=== PATIENT | female | born 1985 | race Asian ===

== ENCOUNTER 2018-07-15 04:10 | Inpatient (IN) | payer BC ==
[2018-07-15] MEDS ORDERED: OXYTOCIN 10 UNIT/ML 1 ML VIAL IM PRN (05:42)
[2018-07-15] MEDS ORDERED: LIDOCAINE 0.5% (PF) 5 MG/ML (50 ML SDV) SQ PRN (05:42)
[2018-07-15] MEDS ORDERED: TERBUTALINE 1 MG/ML VIAL SQ PRN (05:42)
[2018-07-15] MEDS ORDERED: METHYLERGONOVINE 0.2 MG/ML 1 ML AMP IM PRN (05:42)
[2018-07-15] MEDS ORDERED: CARBOPROST TROMETHAMINE 250 MCG/ML 1 ML AMP IM PRN (05:42)
[2018-07-15] MEDS ORDERED: OXYTOCIN 30 UNITS/500 ML NS 30 UNIT in SALINE 1 500ML.BAG IV SCH (05:45)
[2018-07-15 06:19] VITALS: BMI 25.1
[2018-07-15 06:21] LABS: Basophils % (A) 0 %; Eosinophils # (A) 0.3 k/uL (0-0.7); Eosinophils % (A) 2 %; HCT 39.7 % (34.0-46.0); HGB 13.1 gm/dL (11.4-16.0); Lymphocytes # (A) 2.3 k/uL (1.0-4.8); Lymphocytes % (A) 21 %; MCH 29.1 pg (25.0-35.0); MCHC 32.9 g/dL (31.0-37.0); MCV 88.5 fL (80.0-100.0); Mean Platelet Volume 6.6; Monocytes # (A) 0.3 k/uL (0-1.0); Monocytes % (A) 3 %; Neutrophils # (A) 7.9 k/uL (1.3-7.7); Neutrophils % (A) 73 %; Platelet Count 243 k/uL (150-450); RBC 4.48 m/uL (3.80-5.40); RDW 14.2 % (11.5-15.5); WBC 10.9 k/uL (3.8-10.6)
[2018-07-15] MEDS: LACTATED RINGERS 1,000 ML IV SCH ×3 (06:21→07:58)
--- NOTE | 2018-07-15 06:50 | P.HPOB ---
History of Present Illness H&P Date: 07/15/18 Chief Complaint: Contractions This patient is a pleasant 32-year-old 1 para 0 female estimated date of confinement 07/27/2018 estimated gestational age 38-2/7 weeks who presents to labor and delivery with complaint of contractions since 2:00 this morning. Patient was seen in the office last week was closed and thick and is now 3 cm dilated in active labor. Patient's care is been complicated by the known uterine fibroid however she is had normal growth ultrasounds and testing. Patient did elect to have maternity 21 testing which was normal and she's had normal anatomy ultrasounds. Review of Systems Gastrointestinal: Reports heartburn Genitourinary: Reports Menstruation: Reports amenorrhea Past Medical History Past Medical History: No Reported History Additional Past Medical History / Comment(s): renal stones History of Any Multi-Drug Resistant Organisms: None Reported Additional Past Surgical History / Comment(s): hemmorroidectomy Past Anesthesia/Blood Transfusion Reactions: No Reported Reaction Past Psychological History: No Psychological Hx Reported Smoking Status: Never smoker Past Alcohol Use History: None Reported Past Drug Use History: None Reported - Past Family History Mother Family Medical History: Diabetes Mellitus Father Family Medical History: Hypertension, Thyroid Disorder Medications and Allergies Home Medications Medication Instructions Recorded Confirmed Type Pnv No.95/Ferrous Fum/Folic AC 1 each PO DAILY 07/15/18 07/15/18 History [ Multivitamin Tablet] Allergies Allergy/AdvReac Type Severity Reaction Status Date / Time No Known Allergies Allergy Verified 07/15/18 04:18 Exam Vital Signs Temp Pulse Resp BP Pulse Ox 07/15/18 05:58 20 07/15/18 05:45 99.0 F 75 20 116/75 07/15/18 04:55 98.4 F 90 16 125/72 98 Intake and Output 07/14/18 07/14/18 07/15/18 14:59 22:59 06:59 Other: # Voids 1 Weight 64.365 kg - OBG Physical Exam Abdomen: bowel sounds normal, no diffuse tenderness, no bruit present, no guarding noted, no hepatomegaly, no splenomegaly, no mass Vulva: both: normal Vagina: normal moisture, no discharge Cervix: no lesion (3 cm 80% effaced and -1 station.), no discharge Uterus: normal size (Fundal height is 37 cm) Results blood work shows she is A negative, rubella immune, RPR nonreactive, HIV nonreactive, hepatitis B was negative, Glucola was normal, group B strep was negative, patient received RhoGAM on May 01, ultrasounds have been normal. Maternity 21 was 46 X,X. Result Diagrams: 07/15/18 06:15 Abnormal Lab Results - Last 24 Hours (Table) 07/15/18 Range/Units 06:15 WBC 10.9 H (3.8-10.6) k/uL Neutrophils # 7.9 H (1.3-7.7) k/uL Assessment and Plan Assessment: This is a pleasant 32-year-old 1 para 0 female 38-2/7 weeks gestation who is admitted to labor and delivery in active labor. Artificial rupture membranes does show thick meconium-stained fluid, heart tones are reactive /category 1. Plan at this time is to anticipate vaginal delivery. Alert anesthesia due to meconium fluid and pain control as requested. (1) 38 weeks gestation of Current Visit: Yes Status: Acute Code(s): Z3A.38 - 38 WEEKS GESTATION OF SNOMED Code(s): 62873441 (2) Normal labor Current Visit: Yes Status: Acute Code(s): O80 - ENCOUNTER FOR FULL-TERM UNCOMPLICATED DELIVERY; Z37.9 - OUTCOME OF DELIVERY, UNSPECIFIED SNOMED Code(s ): 37978451 (3) Rh negative status during Current Visit: Yes Status: Acute Code(s): O26.899 - OTH RELATED CONDITIONS, UNSPECIFIED TRIMESTER; Z67.91 - UNSPECIFIED BLOOD TYPE, RH NEGATIVE SNOMED Code(s): 070796822 (4) Thick meconium stained amniotic fluid Current Visit: Yes Status: Acute Code(s): P96.83 - MECONIUM STAINING SNOMED Code(s): 835938783
--- NOTE | 2018-07-15 06:52 | P.MSEPDOC ---
Presenting Problems - Arrival Data Date of Arrival on Unit: 07/15/18 Time of Arrival on Unit: 04:10 Mode of Transport: Portable - Complaint OB-Reason for Admission/Chief Complaint: Possible Onset of Labor, Vaginal Bleeding Comment: PT called hair or beauty salon assistant with C/O bleeding, told to come in Medical History - Information : 1 Para: 0 Term: 0 : 0 Abortions: Spontaneous or Elective: 0 Number of Living Children: 0 - Gestational Age Gestational Age by TIFFANIE (wks/days): 38 Weeks and 2 Days - History Comment: Hx fibroids Review of Systems - Review of Systems Constitutional: No problems Breast: No problems ENT: No problems Cardiovascular: No problems Respiratory: No problems Gastrointestinal: No problems Genitourinary: No problems Musculoskeletal: No problems Neurological: No problems Skin: No problems Vital Signs - Temperature Temperature: 99.0 F Temperature Source: Temporal Artery Scan - Pulse Right Supine Brachial Pulse Rate: 75 Pulse Assessment Method: Automatic Cuff - Respirations Respiratory Rate: 20 - Blood Pressure Right Arm Supine Blood Pressure: 116/75 Blood Pressure Mean: 88 Blood Pressure Source: Automatic Cuff Medical Screen Scoring (Pre) - Cervical Exam Dilation: 1-3 cm = 1 Effacement: More than 50% = 2 Membranes: Intact - Uterine Contractions Frequency: > or = 36 weeks =2 - Maternal Vital Signs Maternal Temperature: N/A Maternal Blood Pressure: N/A - Pain Assessment Pain Location and Character: Medial, Abdomen Pain Scale Used: Numeric (1 - 10) Pain Intensity: 6 Pain Management Goal: 4 Pain Description: *Acute Pain Radiation Location: none Pain Frequency: Intermittent Pain Duration: 3 Pain Duration Units: Hours Pain Behavior: Fidgeting, Frustrated, Moving Slowly, Photophobic Effects of Pain: labor Pain Aggravating Factors: Contractions - Assessment Baseline FHR: 125 Heart Rate - NICHD Category: Category I (Normal) = 0 NST: Reactive - Total Score Total Score (Pre): 5 - Level of Risk Level of Risk: Low (0-5) Physician Notification (Pre) - Physician Notified Physician Notified Date: 07/15/18 Physician Notified Time: 04:55 Physician/Practitioner Notifed:: Dr Adams Spoke With: Dr Adams New Order Received: Yes - Notification Comment Comment: Physician in house, ordered complete OB ultrasound Medical Screen Scoring (Post) - Cervical Exam Dilation: 1-3 cm = 1 Effacement: More than 50% = 2 Membranes: Intact - Uterine Contractions Frequency: > or = 36 weeks =2 - Pain Assessment Pain Scale Used: Numeric (1 - 10) - Assessment Heart Rate: 125 Heart Rate - NICHD Category: Category I (Normal) = 0 NST: Reactive - Total Score Total Score (Post): 5 - Post Treatment Level of Risk Post Treatment Level of Risk: Low (0-5) Physician Notification (Post) - Physician Notified Physician Notified Date: 07/15/18 Physician Notified Time: 05:45 Physician/Practitioner Notified:: Dr Adams Spoke With: Dr Adams New Order Received: Yes Disposition - Disposition OB Disposition: Admit, LDRP Suite Transferred to:: Suite 11 I agree with the RN Medical Screening Exam: Yes Risk & Benefit of care provided described in d/c instruction: Yes Diagnosis: ENCOUNTER FOR FULL-TERM UNCOMPLICATED DELIVERY
[2018-07-15] MEDS ORDERED: SODIUM CHLORIDE 0.9% 100 ML BAG ONE (07:11)
[2018-07-15] MEDS ORDERED: fentaNYL (PF) 50 MCG/ML 5 ML AMP ONE (07:11)
[2018-07-15] MEDS ORDERED: ROPIVACAINE 5MG/ML 20ML VIAL ONE (07:11)
[2018-07-15] MEDS ORDERED: BISACODYL 10 MG SUPP RECTAL PRN (11:04)
[2018-07-15] MEDS ORDERED: diphenhydrAMINE 50 MG/ML 1 ML VIAL IVP PRN (11:04)
[2018-07-15] MEDS ORDERED: Rhogam IMMUNE GLOBULIN 1,500 UNIT/1 ML IM ONE (11:04)
[2018-07-15] MEDS ORDERED: diphenhydrAMINE 25 MG CAP PO PRN (11:04)
[2018-07-15] MEDS ORDERED: HYDROCORTISONE 2.5% RECTAL CREAM 30 GM TUBE RECTAL PRN (11:04)
[2018-07-15] MEDS ORDERED: BENZOCAINE/MENTHOL SPRAY 1 GM/SPRAY AEROSOL TOPICAL PRN (11:04)
[2018-07-15] MEDS ORDERED: LANOLIN CREAM 5 GM TUBE TOPICAL PRN (11:04)
[2018-07-15] MEDS ORDERED: WITCH HAZEL 1 EACH MED..PAD TOPICAL PRN (11:04)
[2018-07-15] MEDS ORDERED: OXYTOCIN 20 UNITS/1000 ML NS 1,000 ML IV SCH (11:04)
[2018-07-15] MEDS ORDERED: ZOLPIDEM 5 MG TAB PO PRN (11:04)
[2018-07-15] MEDS ORDERED: SIMETHICONE 80 MG CHEWABLE PO PRN (11:04)
[2018-07-15] MEDS: IBUPROFEN 600 MG TAB PO PRN ×2 (11:17→18:43)
--- NOTE | 2018-07-15 11:46 | P.PROBDLV ---
Vaginal Delivery Note - . Vaginal Delivery Note: Normal spontaneous vaginal delivery viable female Apgars 9 and 9 delivery time is 1048 hrs. Please see dictated H&P for intimate details of this patient's admission. Brief summary this is a pleasant 32-year-old 1 para 0 female estimated gestational age 38-2/7 weeks who presents to labor and delivery with complaints of regular painful contractions found to be in labor. Patient is artificial rupture membranes for thick meconium-stained fluid at 3 cm dilated. heart tones are reactive. Patient does request an epidural for pain control and was placed at this time. Labor continues to progress and she gets to complete. She pushes for approximately 20-25 minutes and pushes the head to the perineum. Posterior perineum is supported and we have controlled delivery of infant's head over the intact perineum. Mouth and nares are bulb suction the baby has spontaneous respiration at this time. With gentle downward traction we then have delivery anterior posterior shoulder and rest this infant's body. This is a vigorous viable female infant Apgars are 9 and 9 delivery time was 1040 hrs. After delivery of the infant the infant is late on the mother's abdomen and after the cord is done pulsate is doubly clamped and then cut. The umbilical cords does appear send but otherwise grossly normal. The placenta spontaneously delivered intact. Cord blood is obtained for Rh status. Inspection of the perineum shows a second-degree laceration which is repaired with 3-0 Vicryl usual fashion excellent reapproximation is noted. Estimated blood loss is 200 mL. There are no complications. Infant and mother are stable delivery room.
[2018-07-15] MEDS: SENNOSIDES-DOCUSATE SODIUM 1 EACH TAB PO SCH ×2 (20:11→22:11)
[2018-07-15] MEDS: ACETAMINOPHEN TAB 325 MG TAB PO PRN (20:12)
[2018-07-15] MEDS: DOCUSATE 100 MG CAP PO SCH (21:03)
[2018-07-16] MEDS: IBUPROFEN 600 MG TAB PO PRN ×3 (00:16→23:21)
--- NOTE | 2018-07-16 06:23 | P.PNOBGVD ---
Subjective - Subjective Patient reports: Reports appetite normal, Reports voiding normally, Reports pain well controlled, Reports ambulating normally : doing well Objective - Latest Vital Signs Latest vital signs: Vital Signs Temp Pulse Resp BP Pulse Ox 07/15/18 23:49 98.6 F 88 16 92/51 99 07/15/18 20:00 98.9 F 103 H 16 101/63 100 07/15/18 16:00 98.4 F 89 16 97/64 07/15/18 13:15 97.9 F 96 15 99/55 07/15/18 12:45 89 15 101/56 07/15/18 12:15 89 15 105/58 07/15/18 12:00 92 16 109/63 07/15/18 11:45 109 H 15 112/58 07/15/18 11:30 97 15 112/52 07/15/18 11:15 97.5 F L 96 15 117/57 07/15/18 06:52 99.0 F 75 20 116/75 Intake and Output 07/15/18 07/15/18 07/16/18 14:59 22:59 06:59 Other: # Voids 1 - Exam Lungs: bilateral: normal Chest: Normal S1, Normal S2 Extremities: Present: normal Abdomen: Present: normal appearance, soft Uterus: Present: normal, firm - Labs Labs: Abnormal Lab Results - Last 24 Hours (Table) 07/15/18 Range/Units 06:15 WBC 10.9 H (3.8-10.6) k/uL Neutrophils # 7.9 H (1.3-7.7) k/uL Assessment and Plan Assessment: day #1. Patient is resting without complaints. Vital signs are stable and she is afebrile. Uterus is firm nontender she's having normal lochia. My impression this is a normal course. Plan is to continue routine care discharge home tomorrow. (1) 38 weeks gestation of Current Visit: Yes Status: Acute Code(s): Z3A.38 - 38 WEEKS GESTATION OF SNOMED Code(s): 17853183 (2) Normal labor Current Visit: Yes Status: Acute Code(s): O80 - ENCOUNTER FOR FULL-TERM UNCOMPLICATED DELIVERY; Z37.9 - OUTCOME OF DELIVERY, UNSPECIFIED SNOMED Code(s ): 35322089 (3) Rh negative status during Current Visit: Yes Status: Acute Code(s): O26.899 - OTH RELATED CONDITIONS, UNSPECIFIED TRIMESTER; Z67.91 - UNSPECIFIED BLOOD TYPE, RH NEGATIVE SNOMED Code(s): 910740603 (4) Thick meconium stained amniotic fluid Current Visit: Yes Status: Acute Code(s): P96.83 - MECONIUM STAINING SNOMED Code(s): 743040007
[2018-07-16] MEDS: SENNOSIDES-DOCUSATE SODIUM 1 EACH TAB PO SCH ×2 (08:41→20:12)
[2018-07-16] MEDS: ACETAMINOPHEN TAB 325 MG TAB PO PRN (13:02)
[2018-07-16] MEDS: DOCUSATE 100 MG CAP PO SCH ×2 (15:13→20:12)
[2018-07-17 00:20] VITALS: RESP 16
--- NOTE | 2018-07-17 06:17 | P.PNOBGVD ---
Subjective - Subjective Patient reports: Reports appetite normal, Reports voiding normally, Reports pain well controlled, Reports ambulating normally : doing well Objective - Latest Vital Signs Latest vital signs: Vital Signs Temp Pulse Resp BP Pulse Ox 07/17/18 00:00 98.3 F 88 16 105/58 07/16/18 16:00 98.7 F 92 18 98/52 98 07/16/18 08:00 99.0 F 93 18 106/65 97 - Exam Lungs: bilateral: normal Chest: Normal S1, Normal S2 Extremities: Present: normal Abdomen: Present: normal appearance, soft Uterus: Present: normal, firm Assessment and Plan Assessment: Post day #2. Patient is resting without complaints wishes to go home. Vital signs are stable and she is afebrile. Uterus is firm nontender she's having normal lochia. My impression this is a normal course. Plan is to continue routine care discharge home later today. (1) 38 weeks gestation of Current Visit: Yes Status: Acute Code(s): Z3A.38 - 38 WEEKS GESTATION OF SNOMED Code(s): 34030894 (2) Normal labor Current Visit: Yes Status: Acute Code(s): O80 - ENCOUNTER FOR FULL-TERM UNCOMPLICATED DELIVERY; Z37.9 - OUTCOME OF DELIVERY, UNSPECIFIED SNOMED Code(s ): 09938414 (3) Rh negative status during Current Visit: Yes Status: Acute Code(s): O26.899 - OTH RELATED CONDITIONS, UNSPECIFIED TRIMESTER; Z67.91 - UNSPECIFIED BLOOD TYPE, RH NEGATIVE SNOMED Code(s): 904038087 (4) Thick meconium stained amniotic fluid Current Visit: Yes Status: Acute Code(s): P96.83 - MECONIUM STAINING SNOMED Code(s): 811318514
--- NOTE | 2018-07-17 06:19 | P.DS ---
Providers Date of admission: 07/15/18 05:39 Expected date of discharge: 07/17/18 Attending physician: Ilir Mercado Primary care physician: Stated None - Discharge Diagnosis(es) (1) 38 weeks gestation of Current Visit: Yes Status: Acute (2) Normal labor Current Visit: Yes Status: Acute (3) Rh negative status during Current Visit: Yes Status: Acute (4) Thick meconium stained amniotic fluid Current Visit: Yes Status: Acute Hospital Course: Please see dictated H&P for intimate details of this patient's admission. Brief summary this is a pleasant 32-year-old 1 para 0 female 38-2/7 weeks gestation who is admitted to labor and delivery in active labor. Patient was on to have a vaginal delivery viable female . Please see dictated delivery note. day #2 patient's felt to be stable for discharge home follow up with me in 6 weeks. Procedures: Normal spontaneous vaginal delivery Patient Condition at Discharge: Good Plan - Discharge Summary New Discharge Prescriptions: New Docusate [Colace] 100 mg PO BID #60 cap Ibuprofen [Motrin] 600 mg PO Q6HR PRN #40 tab PRN Reason: Mild Pain Or Fever >= 100.5 No Action Pnv No.95/Ferrous Fum/Folic AC [ Multivitamin Tablet] 1 each PO DAILY Discharge Medication List Pnv No.95/Ferrous Fum/Folic AC [ Multivitamin Tablet] 1 each PO DAILY [History] Docusate [Colace] 100 mg PO BID #60 cap 07/16/18 [Rx] Ibuprofen [Motrin] 600 mg PO Q6HR PRN #40 tab 07/16/18 [Rx] Follow up Appointment(s)/Referral(s): Ilir Mercado MD [STAFF PHYSICIAN] - 08/26/18 10:45 am Patient Instructions/Handouts: Vaginal Delivery (DC) Activity/Diet/Wound Care/Special Instructions: No intercourse or anything per vagina for 6 weeks. Please call if any fever, chills, excessive vaginal bleeding, and/or abdominal pain. Discharge Disposition: HOME SELF-CARE
[2018-07-17] MEDS: SENNOSIDES-DOCUSATE SODIUM 1 EACH TAB PO SCH (07:29)
[2018-07-17] MEDS: DOCUSATE 100 MG CAP PO SCH (07:30)
[2018-07-17] MEDS: IBUPROFEN 600 MG TAB PO PRN (13:16)
[2018-07-17] MEDS: ACETAMINOPHEN TAB 325 MG TAB PO PRN (14:32)
[2018-07-17 16:23] VITALS: BP 100/66; PULSE 96; TEMP 98.2
== END 2018-07-17 17:30 | disposition home or self-care (01) | DRG 807 ==
LOC: FBPOP 04:10 → 4FBP 05:39
PROVIDERS: ADMIT Obstetrics & Gynecology; ATTEND Obstetrics & Gynecology
PROC: 10E0XZZ Delivery of Products of Conception, External Approach (ICD-10-PCS; principal; 2018-07-15)
PROC: 0KQM0ZZ Repair Perineum Muscle, Open Approach (ICD-10-PCS; 2018-07-15)
PROC: 00HU33Z Insertion of Infusion Device into Spinal Canal, Percutaneous Approach (ICD-10-PCS; 2018-07-15)
PROC: 3E0R3BZ Introduction of Anesthetic Agent into Spinal Canal, Percutaneous Approach (ICD-10-PCS; 2018-07-15)
PROC: 3E0234Z Introduction of Serum, Toxoid and Vaccine into Muscle, Percutaneous Approach (ICD-10-PCS; 2018-07-15)
DX: O70.1 Second degree perineal laceration during delivery (principal); Z37.0 Single live birth; O34.13 Maternal care for benign tumor of corpus uteri, third trimester; D25.9 Leiomyoma of uterus, unspecified; O77.0 Labor and delivery complicated by meconium in amniotic fluid; O26.893 Other specified pregnancy related conditions, third trimester; Z67.91 Unspecified blood type, Rh negative; Z3A.38 38 weeks gestation of pregnancy; Z79.899 Other long term (current) drug therapy; Z87.442 Personal history of urinary calculi; Z83.3 Family history of diabetes mellitus; Z82.49 Family history of ischemic heart disease and other diseases of the circulatory system; Z83.49 Family history of other endocrine, nutritional and metabolic diseases
CPT/HCPCS: 59025; 84112; 85025; 85461; 86850; 86900; 86901; 88307; 99215

== ENCOUNTER 2020-03-05 16:51 | Inpatient (IN) | payer BC ==
[2020-03-05] MEDS: LACTATED RINGERS 1,000 ML IV SCH ×2 (17:40→18:53)
[2020-03-05] MEDS ORDERED: TERBUTALINE 1 MG/ML VIAL SQ PRN (17:45)
[2020-03-05] MEDS ORDERED: METHYLERGONOVINE 0.2 MG/ML 1 ML AMP IM PRN (17:45)
[2020-03-05] MEDS ORDERED: LACTATED RINGERS 1,000 ML IV SCH (17:45)
[2020-03-05] MEDS ORDERED: CARBOPROST TROMETHAMINE 250 MCG/ML 1 ML AMP IM PRN (17:45)
[2020-03-05] MEDS ORDERED: OXYTOCIN 10 UNIT/ML 1 ML VIAL IM PRN (17:45)
[2020-03-05] MEDS ORDERED: LIDOCAINE 0.5% (PF) 5 MG/ML (50 ML SDV) SQ PRN (17:45)
[2020-03-05] MEDS ORDERED: fentaNYL (PF) 50 MCG/ML 5 ML AMP ONE (18:13)
[2020-03-05] MEDS ORDERED: SODIUM CHLORIDE 0.9% 100 ML BAG ONE (18:13)
[2020-03-05] MEDS ORDERED: ROPIVACAINE 5MG/ML 20ML VIAL ONE (18:13)
[2020-03-05] MEDS ORDERED: fentaNYL (PF) 50 MCG/ML 2 ML AMP ONE (18:52)
[2020-03-05] MEDS ORDERED: KETOROLAC 15 MG/ML 1 ML VIAL ONE (18:52)
[2020-03-05] MEDS ORDERED: MIDAZOLAM 2 MG/2 ML VIAL ONE (18:52)
[2020-03-05] MEDS ORDERED: DEXAMETHASONE SOD PHOSPHATE 10 MG/ML 1 ML VIAL ONE (18:52)
[2020-03-05] MEDS ORDERED: MORPHINE SULFATE (PF) 0.3 MG/0.3 ML SYR ONE (18:52)
[2020-03-05] MEDS ORDERED: OXYTOCIN 10 UNIT/ML 1 ML VIAL ONE (18:52)
[2020-03-05] MEDS ORDERED: ONDANSETRON 4 MG/2 ML VIAL ONE (18:52)
[2020-03-05 18:53] LABS: Basophils % (A) 0 %; Eosinophils # (A) 0.2 k/uL (0-0.7); Eosinophils % (A) 2 %; HCT 35.8 % (34.0-46.0); HGB 12.1 gm/dL (11.4-16.0); Lymphocytes # (A) 1.6 k/uL (1.0-4.8); Lymphocytes % (A) 20 %; MCH 28.4 pg (25.0-35.0); MCHC 33.7 g/dL (31.0-37.0); MCV 84.2 fL (80.0-100.0); Mean Platelet Volume 7.6; Monocytes # (A) 0.3 k/uL (0-1.0); Monocytes % (A) 4 %; Neutrophils # (A) 5.8 k/uL (1.3-7.7); Neutrophils % (A) 71 %; Platelet Count 241 k/uL (150-450); RBC 4.26 m/uL (3.80-5.40); RDW 13.8 % (11.5-15.5); WBC 8.1 k/uL (3.8-10.6)
[2020-03-05] MEDS ORDERED: CITRIC ACID-SODIUM CITRATE 15 ML CUP PO ONE (19:13)
[2020-03-05] MEDS ORDERED: METOCLOPRAMIDE 5 MG/ML 2 ML VIAL IVP PRN (20:05)
[2020-03-05] MEDS ORDERED: ONDANSETRON 4 MG/2 ML VIAL IVP PRN (20:05)
[2020-03-05] MEDS ORDERED: Rhogam IMMUNE GLOBULIN 1,500 UNIT/1 ML IM ONE (20:05)
[2020-03-05] MEDS ORDERED: diphenhydrAMINE 25 MG CAP PO PRN (20:05)
[2020-03-05] MEDS ORDERED: HYDROmorphone PCA 10 MG/50 ML BAG IV PRN (20:05)
[2020-03-05] MEDS ORDERED: LANOLIN CREAM 5 GM TUBE TOPICAL PRN (20:05)
[2020-03-05] MEDS ORDERED: NALOXONE 0.4 MG/ML 1 ML VIAL IV PRN (20:05)
[2020-03-05] MEDS ORDERED: ZOLPIDEM 5 MG TAB PO PRN (20:05)
[2020-03-05] MEDS ORDERED: OXYTOCIN 20 UNITS/1000 ML NS 1,000 ML IV SCH (20:15)
--- NOTE | 2020-03-05 20:28 | P.HPOB ---
History of Present Illness H&P Date: 03/05/20 Chief Complaint: Contractions This patient is a pleasant 34-year-old 2 para 1 female estimated date of confinement 03/16/2020 estimated gestational age 38-3/7 weeks gestation who presented to labor and delivery this evening with complaints of contractions. Patient was 4 cm in the office and now is approximately 5-6 cm dilated in early active labor. care has been uncomplicated. Review of Systems Genitourinary: Reports Menstruation: Reports amenorrhea Past Medical History Additional Past Medical History / Comment(s): Patient has a history of kidney stones. History of Any Multi-Drug Resistant Organisms: None Reported Additional Past Surgical History / Comment(s): hemmorroidectomy Past Anesthesia/Blood Transfusion Reactions: No Reported Reaction Past Psychological History: No Psychological Hx Reported Smoking Status: Never smoker Past Alcohol Use History: None Reported Past Drug Use History: None Reported - Past Family History Mother Family Medical History: Diabetes Mellitus Father Family Medical History: Hypertension, Thyroid Disorder Medications and Allergies Allergies Allergy/AdvReac Type Severity Reaction Status Date / Time No Known Allergies Allergy Verified 07/15/18 04:18 Exam Intake and Output 03/05/20 03/05/20 03/05/20 06:59 14:59 22:59 Intake Total 1000 Balance 1000 Intake: IV 1000 Invasive Line 1 1000 Other: Weight 66.224 kg - OBG Physical Exam Abdomen: bowel sounds normal, no diffuse tenderness, no bruit present, no guarding noted, no hepatomegaly, no splenomegaly, no mass Vulva: both: normal Vagina: normal moisture, no discharge Cervix: no lesion (On admissions patient's cervix is 5-6 cm dilated 90% effaced 0-1 station.), no discharge Uterus: enlarged (Fundal height is consistent with gestational age) Results blood work shows she is A-, rubella immune, RPR is nonreactive, hepatitis B was negative, patient received RhoGAM on December 17, Glucola was normal, ultrasounds have shown normal growth, group B strep was negative. Result Diagrams: 03/05/20 17:20 Assessment and Plan Assessment: This is a pleasant 34-year-old 2 para 1 female 38-3/7 weeks gestation admitted in active labor. Plan is anticipate vaginal delivery. (1) 38 weeks gestation of Current Visit: No Status: Acute Code(s): Z3A.38 - 38 WEEKS GESTATION OF SNOMED Code(s): 72721649 (2) Normal labor Current Visit: No Status: Acute Code(s): O80 - ENCOUNTER FOR FULL-TERM UNCOMPLICATED DELIVERY; Z37.9 - OUTCOME OF DELIVERY, UNSPECIFIED SNOMED Code(s): 52548984 (3) Rh negative status during Current Visit: No Status: Acute Code(s): O26.899 - OTH RELATED CONDITIONS, UNSPECIFIED TRIMESTER; Z67.91 - UNSPECIFIED BLOOD TYPE, RH NEGATIVE SNOMED Code(s): 470918740
--- NOTE | 2020-03-05 20:47 | P.OP ---
Date of Procedure: 03/05/20 Preoperative Diagnosis: #1: 38-3/7 week . #2: Active labor. #3: Nonreassuring heart tones remote from delivery Postoperative Diagnosis: #1: Same. #2: Straight occiput posterior presentation Procedure(s) Performed: Emergent primary low transverse section Anesthesia: epidural Surgeon: Ilir Mercado Teacher Learning Disabled #1: Teri Conley Estimated Blood Loss (ml): 800 Pathology: other (Placenta) Condition: stable Disposition: floor Indications for Procedure: Please see dictated H&P for intimate details of this patient's admission. Brief summary this is a pleasant 34-year-old 2 para 1 female estimated gestational age 38-3/7 weeks who presents to labor and delivery complaints of contractions found to be in early active labor. Patient is artificial rupture membranes for clear fluid at 6 cm dilated. At this time patient does request an epidural for pain control. Patient does get relief from her epidural. Sometime thereafter patient develops episode of bradycardia (55-70) this does resolve after many minutes with position changes and remove her to the operating room.. While in the operating room heart tones are reassuring however she's been develops another episode of bradycardia that lasted for about 1 minute. At this time I recommend she proceed with immediate section for delivery. Patient understands this surgery and risks and risks of infection, bleeding, possible injury bowel, bladder, vessels, and/or other organs. All the patient's questions are answered and written consent is obtained. Operative Findings: This was a viable male Apgars 9 and 9 delivery time is 1924 hrs. Infant was straight occiput posterior presentation. There were no other obvious sources of the baby's bradycardia. Infant grossly appeared normal Description of Procedure: This patient has a Castaneda catheter placed to straight drain. Her epidural is of sufficient level for surgery therefore she has an immediate abdominal prep and drape. Scalpels then taken and a Pfannenstiel skin incision is made. A second scalpel is then taken down to the fascia. Fascia is then extended bilaterally using the Boone scissors. Fascia is dissected off the rectus muscles sharply. Rectus muscles are the peritoneum identified and entered sharply. Peritoneal incision extended superior and inferior without difficulty. Bladder blade is then placed. Bladder peritoneum was taken off the lower uterine segment. Scalpels taken low transverse uterine incision is made. Using a hemostat I into the uterine cavity bluntly. There is loss of small amount of clear fluid. Infant is found to be straight occiput posterior presentation. The head is then gently guided through the incision with fundal pressure delivered. Mouth and nares are bulb suctioned. There is no evidence of a nuchal cord. With more fundal pressure we gently have delivery the rest of this 's body. This is a vigorous viable male Apgars are 9 and 9 delivery time is 1924 hrs. has spontaneous respiration and vigorous cry. The umbilical cord is doubly clamped and cut. Infant is handed off to the nurses in attendance. Cord blood is obtained for Rh status. Placenta is then manually extracted intact. Uterus is externalized and uterine incision demarcated with Jane clamps. Uterine incision is then closed using 2 layers of 0 Vicryl running locked fashion. Excellent hemostasis is noted. Bladder peritoneum was reapproximated using a 3-0 Vicryl. Excess fluid is removed from the abdomen and pelvis. Uterus placed back in the abdomen. The parietal peritoneum was then closed using 0 Vicryl running fashion. Rectus muscles reapproximated Vicryl interrupted fashion. Fascial incision is then closed using 0 PDS in a running fashion. Fascial incision is intact and hemostatic. Subcutaneous tissues and closed using a 3-0 Vicryl. Skin is and closed using sanjay. All counts are correct 3. There are no complications. and mother are stable and taken to the birthing suite.
[2020-03-05] MEDS: diphenhydrAMINE 50 MG/ML 1 ML VIAL IVP PRN (21:30)
[2020-03-06] MEDS: LACTATED RINGERS 1,000 ML IV SCH ×2 (03:30→20:41)
[2020-03-06] MEDS: KETOROLAC 15 MG/ML 1 ML VIAL IVP PRN ×2 (04:12→09:55)
[2020-03-06] MEDS: SIMETHICONE 80 MG CHEWABLE PO PRN (04:52)
[2020-03-06] MEDS: diphenhydrAMINE 50 MG/ML 1 ML VIAL IVP PRN ×2 (05:00→10:00)
[2020-03-06 05:30] LABS: Basophils % (A) 0 %; Eosinophils % (A) 0 %; HCT 33.6 % (34.0-46.0); HGB 10.9 gm/dL (11.4-16.0); Lymphocytes % (A) 13 %; MCH 26.8 pg (25.0-35.0); MCHC 32.4 g/dL (31.0-37.0); MCV 82.9 fL (80.0-100.0); Mean Platelet Volume 7.6; Monocytes # (A) 0.5 k/uL (0-1.0); Monocytes % (A) 3 %; Neutrophils # (A) 13.1 k/uL (1.3-7.7); Neutrophils % (A) 83 %; Platelet Count 263 k/uL (150-450); RBC 4.05 m/uL (3.80-5.40); RDW 13.9 % (11.5-15.5); WBC 15.8 k/uL (3.8-10.6)
--- NOTE | 2020-03-06 07:33 | P.PNOBGPC ---
Subjective - Subjective Patient reports: Reports appetite normal, Reports voiding normally, Reports pain well controlled, Reports ambulating normally : doing well Objective - Vital Signs Latest vital signs: Vital Signs Temp Pulse Resp BP Pulse Ox 03/06/20 04:00 97.4 F L 93 16 107/54 99 03/06/20 00:00 97.2 F L 78 16 102/55 100 03/05/20 21:55 86 16 101/61 03/05/20 21:25 93 16 100/65 100 03/05/20 20:55 84 16 102/65 99 03/05/20 20:40 85 16 94/57 100 03/05/20 20:25 88 16 102/60 100 03/05/20 20:10 96 16 101/56 100 03/05/20 19:55 97.6 F 96 17 100 03/05/20 18:11 98.7 F 97 18 110/64 Intake and Output 03/05/20 03/06/20 03/06/20 22:59 06:59 14:59 Intake Total 1000 Output Total 1400 900 Balance -400 -900 Intake: IV 1000 Invasive Line 1 1000 Output: Urine 600 900 Estimated Blood Loss 800 Other: Voiding Method Indwelling Catheter Weight 66.224 kg - Exam Lungs: bilateral: normal Chest: Normal S1, Normal S2 Extremities: Present: normal Abdomen: Present: normal appearance, soft. Absent: distention, tenderness Incision: Present: normal, dry, intact Uterus: Present: normal, firm - Labs Labs: Abnormal Lab Results - Last 24 Hours (Table) 03/06/20 Range/Units 04:43 WBC 15.8 H (3.8-10.6) k/uL Hgb 10.9 L (11.4-16.0) gm/dL Hct 33.6 L (34.0-46.0) % Neutrophils # 13.1 H (1.3-7.7) k/uL Assessment and Plan Assessment: Postoperative day #1. Patient is resting without new complaints. Vital signs are stable and she is afebrile. Uterus is firm nontender and her incision is intact and dry. Patient's having normal lochia. CBC is pending. Plan today is to continue postoperative care. We'll check a CBC, allow patient to shower, advance her diet, and encourage ambulation. (1) 38 weeks gestation of Current Visit: No Status: Acute Code(s): Z3A.38 - 38 WEEKS GESTATION OF SNOMED Code(s): 88590580 (2) Normal labor Current Visit: No Status: Acute Code(s): O80 - ENCOUNTER FOR FULL-TERM UNCOMPLICATED DELIVERY; Z37.9 - OUTCOME OF DELIVERY, UNSPECIFIED SNOMED Code(s): 04031025 (3) Rh negative status during Current Visit: No Status: Acute Code(s): O26.899 - OTH RELATED CONDITIONS, UNSPECIFIED TRIMESTER; Z67.91 - UNSPECIFIED BLOOD TYPE, RH NEGATIVE SNOMED Code(s): 374230246
[2020-03-06] MEDS: SENNOSIDES-DOCUSATE SODIUM 1 EACH TAB PO SCH ×2 (07:40→20:39)
[2020-03-06] MEDS: HYDROcodone/APAP 5-325MG 1 EACH TAB PO PRN ×2 (07:41→18:31)
[2020-03-06] MEDS: ACETAMINOPHEN TAB 325 MG TAB PO PRN (12:47)
[2020-03-06] MEDS: IBUPROFEN 600 MG TAB PO PRN ×2 (15:55→22:50)
[2020-03-07] MEDS: IBUPROFEN 600 MG TAB PO PRN ×3 (04:48→18:21)
[2020-03-07] MEDS: SIMETHICONE 80 MG CHEWABLE PO PRN ×3 (04:52→22:45)
--- NOTE | 2020-03-07 06:39 | P.PNOBGPC ---
Subjective - Subjective Patient reports: Reports appetite normal, Reports voiding normally, Reports pain well controlled, Reports ambulating normally : doing well Objective - Vital Signs Latest vital signs: Vital Signs Temp Pulse Resp BP Pulse Ox 03/06/20 23:40 98.1 F 101 H 16 99/66 98 03/06/20 20:00 98.5 F 85 16 101/67 98 03/06/20 18:00 95/57 03/06/20 16:00 98.4 F 85 18 75/49 99 03/06/20 12:00 98.6 F 80 18 87/58 98 Intake and Output 03/06/20 03/06/20 03/07/20 14:59 22:59 06:59 Output Total 1250 Balance -1250 Output: Urine 1250 Other: # Voids 1 2 # Bowel Movements 0 - Exam Lungs: bilateral: normal Chest: Normal S1, Normal S2 Extremities: Present: normal Abdomen: Present: normal appearance, soft. Absent: distention, tenderness Incision: Present: normal, dry, intact Uterus: Present: normal, firm Assessment and Plan Assessment: Postoperative day #2. Vital signs are stable she's afebrile. CBC yesterday was within normal limits for state. Uterus is firm nontender and her incision is intact and dry. Patient is tolerating regular diet and urinating without difficulty. Plan today is to continue postoperative care discharge home tomorrow (1) 38 weeks gestation of Current Visit: No Status: Acute Code(s): Z3A.38 - 38 WEEKS GESTATION OF SNOMED Code(s): 35833746 (2) Normal labor Current Visit: No Status: Acute Code(s): O80 - ENCOUNTER FOR FULL-TERM UNCOMPLICATED DELIVERY; Z37.9 - OUTCOME OF DELIVERY, UNSPECIFIED SNOMED Code(s): 92582305 (3) Rh negative status during Current Visit: No Status: Acute Code(s): O26.899 - OTH RELATED CONDITIONS, UNSPECIFIED TRIMESTER; Z67.91 - UNSPECIFIED BLOOD TYPE, RH NEGATIVE SNOMED Code(s): 485232598
[2020-03-07] MEDS: SENNOSIDES-DOCUSATE SODIUM 1 EACH TAB PO SCH ×2 (07:44→22:45)
[2020-03-07] MEDS: ACETAMINOPHEN TAB 325 MG TAB PO PRN ×2 (07:44→20:57)
[2020-03-08] MEDS: HYDROcodone/APAP 5-325MG 1 EACH TAB PO PRN (04:46)
--- NOTE | 2020-03-08 06:25 | P.PNOBGPC ---
Subjective - Subjective Patient reports: Reports appetite normal, Reports voiding normally, Reports pain well controlled, Reports ambulating normally : doing well Objective - Vital Signs Latest vital signs: Vital Signs Temp Pulse Resp BP Pulse Ox 03/07/20 23:46 98.0 F 88 18 95/57 03/07/20 23:42 88 15 03/07/20 16:00 98.1 F 88 15 95/61 03/07/20 08:00 98.5 F 85 15 101/68 97 Intake and Output 03/07/20 03/07/20 03/08/20 14:59 22:59 06:59 Intake Total 1000 Balance 1000 Intake: Oral 1000 Other: Voiding Method Indwelling Catheter # Voids 2 3 2 - Exam Lungs: bilateral: normal Chest: Normal S1, Normal S2 Extremities: Present: normal Abdomen: Present: normal appearance, soft. Absent: distention, tenderness Incision: Present: normal, dry, intact Uterus: Present: normal, firm Assessment and Plan Assessment: Post operative day #3. Patient is resting without complaints. Vital signs are stable she is afebrile. Uterus is firm nontender and her incision is intact and dry. Impression is a normal post operative course. Plan is to continue routine postoperative care discharge home later today (1) 38 weeks gestation of Current Visit: No Status: Acute Code(s): Z3A.38 - 38 WEEKS GESTATION OF SNOMED Code(s): 40265522 (2) Normal labor Current Visit: No Status: Acute Code(s): O80 - ENCOUNTER FOR FULL-TERM UNCOMPLICATED DELIVERY; Z37.9 - OUTCOME OF DELIVERY, UNSPECIFIED SNOMED Code(s): 62297657 (3) Rh negative status during Current Visit: No Status: Acute Code(s): O26.899 - OTH RELATED CONDITIONS, UNSPECIFIED TRIMESTER; Z67.91 - UNSPECIFIED BLOOD TYPE, RH NEGATIVE SNOMED Code(s): 371477808
--- NOTE | 2020-03-08 06:35 | P.DS ---
Providers Date of admission: 03/05/20 17:21 Expected date of discharge: 03/08/20 Attending physician: Ilir Mercado Primary care physician: Stated None - Discharge Diagnosis(es) (1) 38 weeks gestation of Current Visit: No Status: Acute (2) Normal labor Current Visit: No Status: Acute (3) Rh negative status during Current Visit: No Status: Acute Hospital Course: Please see dictated H&P for intimate details of this patient's admission. Brief summary this is a pleasant 34-year-old 2 para 1 female 38-3/7 weeks gestation who is admitted to labor and delivery in active labor. Patient's s ubsequent was on have a primary low transverse section for nonreassuring heart tones. Please see dictated delivery note. Postoperative patient does well and on postoperative 3 felt be stable for discharge home follow up with me in 1 week. Procedures: Primary low transverse section Patient Condition at Discharge: Good Plan - Discharge Summary New Discharge Prescriptions: New Ibuprofen [Motrin] 600 mg PO Q6HR PRN #40 tab PRN Reason: Mild Pain Or Fever >= 100.5 HYDROcodone/APAP 5-325MG [[place] 5-325] 1 each PO Q4HR PRN #18 tab PRN Reason: Moderate Pain Discharge Medication List HYDROcodone/APAP 5-325MG [[place] 5-325] 1 each PO Q4HR PRN #18 tab 03/08/20 [Rx] Ibuprofen [Motrin] 600 mg PO Q6HR PRN #40 tab 03/08/20 [Rx] Follow up Appointment(s)/Referral(s): Ilir Mercado MD [STAFF PHYSICIAN] - 04/14/20 11:15 am (Please see me in approximately 1 week for an incision check) Patient Instructions/Handouts: (DC) Activity/Diet/Wound Care/Special Instructions: No lifting or strenuous activity for 6 weeks. No driving is discussed. Please call if any fever, chills, excessive vaginal bleeding, and/or abdominal pain. Discharge Disposition: HOME SELF-CARE
[2020-03-08] MEDS: SENNOSIDES-DOCUSATE SODIUM 1 EACH TAB PO SCH (08:00)
[2020-03-08 08:06] VITALS: BP 95/68; PULSE 75; RESP 15; TEMP 98.1
[2020-03-08] MEDS: IBUPROFEN 600 MG TAB PO PRN (10:47)
== END 2020-03-08 12:00 | disposition home or self-care (01) | DRG 788 ==
LOC: FBPOP 16:51 → 4FBP 17:21
PROVIDERS: ADMIT Obstetrics & Gynecology; ATTEND Obstetrics & Gynecology
PROC: 00HU33Z Insertion of Infusion Device into Spinal Canal, Percutaneous Approach (ICD-10-PCS; 2020-03-05)
PROC: 3E0R3BZ Introduction of Anesthetic Agent into Spinal Canal, Percutaneous Approach (ICD-10-PCS; 2020-03-05)
PROC: 3E0234Z Introduction of Serum, Toxoid and Vaccine into Muscle, Percutaneous Approach (ICD-10-PCS; 2020-03-05)
PROC: 10D00Z1 Extraction of Products of Conception, Low, Open Approach (ICD-10-PCS; principal; 2020-03-05 19:00)
DX: O26.893 Other specified pregnancy related conditions, third trimester (principal); O76 Abnormality in fetal heart rate and rhythm complicating labor and delivery; Z37.0 Single live birth; Z3A.38 38 weeks gestation of pregnancy; Z67.91 Unspecified blood type, Rh negative; Z87.442 Personal history of urinary calculi; Z82.49 Family history of ischemic heart disease and other diseases of the circulatory system; Z83.3 Family history of diabetes mellitus; Z83.49 Family history of other endocrine, nutritional and metabolic diseases
CPT/HCPCS: 85025; 85461; 86850; 86870; 86880; 86900; 86901; 88307